=== PATIENT | female | born 1955 | race Asian ===

== ENCOUNTER 2016-07-29 08:34 | Emergency (ER) | payer MEDICARE ==
[~2016-07-29] VITALS: Ht 149.9 cm; Wt 59.0 kg
[2016-07-29] MEDS ORDERED: ATOR20TA86 PO (09:40)
[2016-07-29] MEDS ORDERED: AMLO-511 PO (09:40)
[2016-07-29] MEDS ORDERED: IBUPROFEN 600 MG TABLET PO ONE (13:00)
[2016-07-29] MEDS ORDERED: ACETAMINOPHEN 325 MG TABLET PO ONE (13:00)
[2016-07-29 13:33] VITALS: BP 138/78
== END 2016-07-29 13:54 | disposition home or self-care (01) ==
LOC: EMS 08:36
DX: S39.012A Strain of muscle, fascia and tendon of lower back, initial encounter (principal); S13.4XXA Sprain of ligaments of cervical spine, initial encounter; I10 Essential (primary) hypertension; E78.00 Pure hypercholesterolemia, unspecified; V43.52XA Car driver injured in collision with other type car in traffic accident, initial encounter; Y93.89 Activity, other specified; Y92.488 Other paved roadways as the place of occurrence of the external cause; Y99.8 Other external cause status
CPT/HCPCS: 72100; 72125; 99284